=== PATIENT | female | born 1970 | race Caucasian/White ===

== ENCOUNTER 2020-06-07 08:19 | Emergency (ER) | payer BC, OTHER ==
[~2020-06-07] VITALS: Ht 160 cm; Wt 59.0 kg
[2020-06-07 09:11] LABS: *BILIRUBIN,URIN 1+ (NEGATIVE); *BLOOD, URINE 3+ (NEGATIVE); *CLARITY,URINE CLOUDY (CLEAR); *COLOR,URINE DARK YELLOW (YELLOW); *KETONES,URINE NEGATIVE (NEGATIVE); *UROBILINOGEN,URINE 0.2 E.U./dl (NORMAL); LEUKOCYTE ESTERASE ,URINE NEGATIVE (NEGATIVE); NITRITE, URINE NEGATIVE (NEGATIVE); UGLUCOSE NEGATIVE (NEGATIVE)
[2020-06-07 09:17] LABS: *URINE HCG, QUAL NEG (NEGATIVE)
--- NOTE | 2020-06-07 09:20 | NUR ---
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
[2020-06-07] MEDS ORDERED: ONDANSETRON 4 MG/2 ML VIAL IV ONE (10:30)
[2020-06-07] MEDS ORDERED: HYDROMORPHONE 1 MG/1 ML DISP.SYRIN IV ONE (10:30)
[2020-06-07] MEDS: IV NORMAL SALINE 1000 ML BAG IV ONE ×2 (10:30→10:43)
[2020-06-07] MEDS ORDERED: HYDROMORPHONE 1 MG/1 ML DISP.SYRIN ONE (10:38)
[2020-06-07] MEDS ORDERED: ONDANSETRON 4 MG/2 ML VIAL ONE (10:38)
[2020-06-07 10:43] LABS: BASOPHILS % (AUTO) 0.3 % (0.0-2.0); EOSINOPHILS # (AUTO) 0.2 K/uL (0.0-0.7); HEMATOCRIT 42.4 % (31.2-41.9); HEMOGLOBIN 14.1 g/dL (10.9-14.3); LYMPHOCYTES # (AUTO) 2.4 K/uL (20.0-40.0); LYMPHOCYTES % (AUTO) 27.4 % (20.5-51.5); MEAN CORPUSCULAR HEMOGLOBIN 29.5 uug (24.7-32.8); MEAN CORPUSCULAR HGB CONC 33 g/dL (32.3-35.6); MEAN CORPUSCULAR VOLUME 88.6 fL (75.5-95.3); MONOCYTES # (AUTO) 0.7 K/uL (2.0-10.0); MONOCYTES % (AUTO) 7.9 % (0.0-11.0); NEUTROPHILS # (AUTO) 5.5 K/uL (1.8-8.9); NEUTROPHILS % (AUTO) 62.4 % (38.5-71.5); PLATELET COUNT (AUTO) 340 K/uL (179-408); RED BLOOD CELL COUNT(AUTO) 4.79 MIL/uL (3.63-4.92); WHITE BLOOD COUNT (AUTO) 8.9 K/uL (3.8-11.8)
[2020-06-07 10:47] LABS: CREATININE 0.8 mg/dL (0.6-1.3); POTASSIUM 3.2 mmol/L (3.5-5.1)
[2020-06-07 10:53] LABS: BILIRUBIN,DIRECT 0.1 mg/dL (0.0-0.2); BILIRUBIN,TOTAL 0.4 mg/dL (0.2-1.0); TOTAL PROTEIN, SERUM 7.2 g/dL (6.4-8.2)
--- NOTE | 2020-06-07 12:00 | NUR ---
Patient discharged to home in stable condition. Written and verbal after care instructions given. Patient verbalizes understanding of instructions. Stressed follow up or return to ER for worsening s/s.PT DENIES PAIN/NAUSEA, WILL COME AND TAP DANCER THE PT.
[2020-06-07 12:01] VITALS: BP 101/61
[2020-06-07 12:04] LABS: BACTERIA,URINE FEW /HPF (NONE SEEN); RBC,URINE 20-50 /HPF (0-3); SQUAMOUS EPITHELIAL CELL,UR FEW /HPF (NONE SEEN); WBC,URINE 0-3 /HPF (0-3)
== END 2020-06-07 12:02 | disposition home or self-care (01) ==
LOC: ER 08:19
DX: N13.2 Hydronephrosis with renal and ureteral calculous obstruction (principal)
CPT/HCPCS: 36415; 74176; 76856; 80048; 80076; 81001; 83690; 84703; 85025; 85730; 96374; 96375; 99285; J1170; J2405; J7030